=== PATIENT | female | born 1965 | race Caucasian/White ===

== ENCOUNTER 2018-04-16 14:35 | Emergency (ER) | payer OTHER ==
[~2018-04-16] VITALS: Ht 165.1 cm; Wt 66.2 kg
[~2018-04-16 14:35] MED LIST: Amoxicillin500 MG PO; BUSP10 PO; CARV25 PO; Crutch1 EACH MISC; Hydrocodone-Ap1 EA23 PO; IBUP600 PO; Imitrex25 MG PO; LISI20 PO; Mobic7.5 MG PO; Norco 5-325 Ta1 EACH PO; Prednisone20 MG PO; SUMA25 PO; Ultram50 MG PO; Zofran Odt8 MG SL
[2018-04-16 17:26] LABS: U Amphetamine Screen DETECTED; U Barbituate Screen Not Detected; U Benzodiazapine Screen Not Detected; U Buprenorphine Screen Not Detected; U Cannabinoids Screen Not Detected; U Cocaine Screen Not Detected; U Methadone Screen Not Detected; U Methamphetamine Screen DETECTED; U Opiates Screen Not Detected; U Oxycodone Screen Not Detected; U Phencyclidine Screen Not Detected; U Propoxyphene Screen Not Detected
== END 2018-04-16 16:32 | disposition home or self-care (01) ==
LOC: ER 14:35
PROVIDERS: Physician Assistant
DX: F22 Delusional disorders (principal); F30.9 Manic episode, unspecified; Z79.891 Long term (current) use of opiate analgesic; Z79.899 Other long term (current) drug therapy; I10 Essential (primary) hypertension; G43.909 Migraine, unspecified, not intractable, without status migrainosus; F43.10 Post-traumatic stress disorder, unspecified; F17.200 Nicotine dependence, unspecified, uncomplicated
CPT/HCPCS: 99283